=== PATIENT | female | born 1980 | race Caucasian/White ===

== ENCOUNTER 2018-01-27 10:45 | Emergency (ER) | payer MEDICAID ==
[~2018-01-27] VITALS: Ht 160 cm; Wt 70.9 kg
[2018-01-27 10:55] VITALS: BP 129/89
[2018-01-27] MEDS ORDERED: HYDROcodone/APAP 5/325 TABLET ONE (11:24)
[2018-01-27] MEDS ORDERED: HYDROcodone/APAP 5/325 TABLET PO ONE (11:30)
== END 2018-01-27 12:09 | disposition home or self-care (01) ==
LOC: ED 11:45
DX: S60.011A Contusion of right thumb without damage to nail, initial encounter (principal); X58.XXXA Exposure to other specified factors, initial encounter; Y93.89 Activity, other specified; Y92.89 Other specified places as the place of occurrence of the external cause; Y99.0 Civilian activity done for income or pay
CPT/HCPCS: 99284

== ENCOUNTER 2020-10-29 13:41 | Emergency (ER) | payer MEDICAID ==
[~2020-10-29] VITALS: Ht 160 cm; Wt 72.3 kg
--- NOTE | 2020-10-29 14:10 | NUR ---
PT reports generalized swelling to hands, feet, knees which started about 3 weeks ago. Pt reports she quit drinking one month ago. PT denies cp, sob, n/v.
--- NOTE | 2020-10-29 15:27 | NUR ---
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
[2020-10-29 16:06] LABS: BASOPHILS % (AUTO) 1 % (0-1); EOSINOPHILS % (AUTO) 1 % (1-7); LYMPHOCYTES % (AUTO) 21 % (22-44); MEAN CORPUSCULAR HEMOGLOBIN 32.2 pg (27.0-34.8); MEAN CORPUSCULAR HGB CONC 33.8 g/dL (32.4-35.8); MONOCYTES % (AUTO) 4 % (2-9); NEUTROPHILS % (AUTO) 72 % (42-75); PLATELET COUNT 560 x10^3/uL (130-400); RED BLOOD COUNT 4.67 x10^6/uL (3.82-5.3); RED CELL DISTRIBUTION WIDTH 13.1 % (9.6-15.2)
[2020-10-29 16:09] LABS: MD NO
[2020-10-29 16:17] LABS: ANION GAP 6 mmol/L (5-15); CALCIUM 8.9 mg/dL (8.5-10.1); CHLORIDE 109 mmol/L (98-107); CREATININE 0.81 mg/dL (0.55-1.02)
[2020-10-29 18:23] VITALS: BP 121/83
== END 2020-10-29 17:12 | disposition home or self-care (01) ==
LOC: ED 17:05
DX: M13.0 Polyarthritis, unspecified (principal); M25.511 Pain in right shoulder; M25.512 Pain in left shoulder; M25.531 Pain in right wrist; M25.532 Pain in left wrist
CPT/HCPCS: 36415; 80048; 84443; 85025; 99284